=== PATIENT | female | born 1955 | race Caucasian/White ===

== ENCOUNTER → 2019-07-07 16:14 | Outpatient (CLI) | payer OTHER, SELFPAY ==
--- NOTE | ~2019-07-07 | XR_ITS ---
[XR ribs LT 2V w CXR 2V ] INDICATION: Pleurodynia TECHNIQUE: Frontal projection of the upper left ribs, frontal projection of the lower left ribs, obli que projection of all the left ribs, frontal inspiratory chest x-ray for interpretation. FINDINGS: There are no displaced rib fractures identified. There are no soft tissue abnormality see n. The lungs are clear. There are calcified granulomas in the left lung. There is mild thoracic spo ndylosis. IMPRESSION: 1:No displaced rib fractures. Reviewed, dictated and finalized at location A.
--- NOTE | ~2019-07-07 | XR_ITS ---
XR hand RT min 3V 07/07/2019 16:54 Indication: Right hand pain. Procedure: 3 views right hand Comparison: No prior studies for comparison. Findings: There is mild polyarticular osteoarthritis of the interphalangeal as well as the first MCP and CMC joints. There is chondrocalcinosis distal to the ulna. No acute fracture or traumatic malalig nment. No focal soft tissue abnormality. No radiopaque foreign bodies. Impression: 1: Mild polyarticular osteoarthritis. Reviewed, dictated and finalized at location A. Impression: 1: Mild polyarticular osteoarthritis.
== END ==
PROVIDERS: PCP Family Medicine; Visit Provider Family Medicine
DX: M65.311 Trigger thumb, right thumb (principal); R07.81 Pleurodynia; M19.041 Primary osteoarthritis, right hand
CPT/HCPCS: 71045; 71101; 73130

== ENCOUNTER 2020-05-15 06:54 | Outpatient (NON) | payer OTHER, SELFPAY ==
[2020-05-15 21:24] LABS: SARS-CoV-2 RNA PCR Negative
== END 2020-05-15 06:55 ==
LOC: ANHCOVIDDT 06:57
PROVIDERS: PCP Family Medicine; Visit Provider Family Medicine
DX: R68.89 Other general symptoms and signs (principal); Z20.822 Contact with and (suspected) exposure to COVID-19
CPT/HCPCS: C9803; U0003; U0005